=== PATIENT | female | born 1945 | race Caucasian/White ===

== ENCOUNTER 2016-12-17 18:27 | Inpatient (IN) | payer OTHER, MEDICARE ==
[~2016-12-17] VITALS: Ht 152.4 cm; Wt 79.4 kg
--- NOTE | ~2016-12-17 | HP ---
PATIENT: RONALDO MERCADO MEDICAL RECORD: [id number] ACCOUNT: [id number] LOCATION:D.[facility] : 46 ADMISSION DATE: 12/18/16 HISTORY AND PHYSICAL EXAMINATION HISTORY OF PRESENT ILLNESS: Ms. Mercado is a 71-year-old white female that presents to the Emergency Room complaining of right upper and epigastric abdominal pain with radiation to the back with some nausea. She presents to the Emergency Room where her ultrasound shows findings compatible with acute cholecystitis. LFTs are okay. She is admitted at this time for a surgical consultation. PAST MEDICAL HISTORY: Significant for hypertension and coronary artery disease. PREVIOUS SURGERIES: Include bypass in 2002, ovarian cyst removal. ALLERGIES OR INTOLERANCES: None known. HOME MEDICATIONS: Include metoprolol 100 mg daily, baby aspirin a day, estrogen 1.25 every day. FAMILY HISTORY: Significant for cardiovascular disease. SOCIAL HISTORY: The patient has a history of previous nicotine abuse, alcohol okay. REVIEW OF SYSTEMS: She denies any fever, chills, or sweats. She does have some nausea and vomiting, right upper quadrant abdominal pain with radiation to the back. No chest pain or shortness of breath. No change in bowels. No dysuria. No rash. PHYSICAL EXAMINATION: HEAD: Normocephalic. NECK: Soft and supple. EYES: Sclerae nonicteric. HEART: Regular rate and rhythm. LUNGS: Clear. ABDOMEN: Soft with tenderness in right upper quadrant. No edema. NEUROLOGIC: Without any gross focal deficits. IMPRESSION: 1. Right upper quadrant abdominal pain with probable acute cholecystitis. 2. History of coronary artery disease, stable. 3. Hypertension. PLAN: Admit, IV fluids, pain control. Hold estrogen and aspirin for now. Surgical consult with probable laparoscopic cholecystectomy in the a.m. TRANSINT:[id number] Voice Confirmation ID: [id number] DOCUMENT ID: [id number] HISTORY AND PHYSICAL [id number] RONALDO MERCADO MATTHEW CC: [id number] DICTATION DATE: 12/18/16 1210 DIRECTOR OF STUDENT AID: 12/18/16 1427 ADM IN [facility] [address] [place] [address]
[2016-12-17 19:08] LABS: BASOPHILS 0.3 % (0-2); EOSINOPHILS 3.6 % (0-7); HEMATOCRIT 36.7 % (36.0-48.0); HEMOGLOBIN 11.9 g/dL (12-16); LYMPHOCYTES 15.9 % (15-50); MCH 29.8 pg (26.0-34.0); MCHC 32.4 g/dL (31.0-37.0); MEAN PLATELET VOLUME 10.1 fL (7.4-10.4); MONOCYTES 12.4 % (2-11); NEUTROPHILS 67.8 % (40-80); PLATELET COUNT 228 10x3/uL (130-400); RBC 3.99 10x6/uL (4.00-5.40); WBC 6.2 10x3/uL (4.8-10.8)
[2016-12-17 19:35] LABS: ALBUMIN 3.3 g/dL (3.4-5.0); ALKALINE PHOSPHATASE 92 U/L (46-116); ALT (SGPT) 41 U/L (10-68); AMYLASE - SERUM 33 U/L (25-115); BILIRUBIN - TOTAL 0.33 mg/dL (0.2-1.3); CALC OSMOLALITY 268 mosm/kg (275-300); CALCIUM 9.4 mg/dL (8.5-10.1); CARBON DIOXIDE 29.3 mmol/L (21.0-32.0); CHLORIDE - SERUM 98 mmol/L (98-107); CREATININE - SERUM 0.7 mg/dL (0.6-1.3); GLUCOSE 111 mg/dL (74-106); LIPASE 181 U/L (73-393); POTASSIUM - SERUM 4.1 mmol/L (3.5-5.1); PROTEIN - SERUM 7.3 g/dL (6.4-8.2); SODIUM 134 mmol/L (136-145); UREA NITROGEN 12 mg/dL (7-18); eGFR NON AFRICAN AMERICAN 88 mL/min (90-120)
[2016-12-17 19:55] LABS: TROPONIN-I < 0.017 ng/mL (0.000-0.060)
[2016-12-18] MEDS ORDERED: METOPROLOL TART50 MG PO (03:09)
[2016-12-18] MEDS ORDERED: CHILDREN'S ASPI81 MG PO (03:09)
[2016-12-18] MEDS ORDERED: PREMARIN1.25 MG PO (03:10)
--- NOTE | 2016-12-18 03:39 | NUR ---
CALLED FOR TELE
--- NOTE | 2016-12-18 03:39 | NUR ---
RED'D PT FROM ER. NO VISIBLE SIGNS OF DISTRESS AND PT HAS NO C/O PAIN. COMPLETED HX AND ASSESSMENT. PATIENT DENIES NEEDS AT THIS TIME. BED IN LOWEST POSITION AND CALL LIGHT WITHIN REACH. ENCOURAGED THE PATIENT TO CALL IF SHE HAS NEEDS.
[2016-12-18 04:00] VITALS: BP 115/67
[2016-12-18 06:40] VITALS: BP 115/67; Ht 152.4 cm; Wt 79.4 kg
[2016-12-18 08:35] VITALS: BP 153/54
[2016-12-18 09:02] LABS: BASOPHILS 0.1 % (0-2); EOSINOPHILS 0.7 % (0-7); HEMATOCRIT 36.2 % (36.0-48.0); HEMOGLOBIN 11.8 g/dL (12-16); IMMATURE GRANULOCYTES 0.1 % (0-5); LYMPHOCYTES 17.9 % (15-50); MCH 29.8 pg (26.0-34.0); MCHC 32.6 g/dL (31.0-37.0); MCV 91.4 fL (80.0-100.0); MEAN PLATELET VOLUME 10.4 fL (7.4-10.4); MONOCYTES 7.7 % (2-11); NEUTROPHILS 73.5 % (40-80); PLATELET COUNT 228 10x3/uL (130-400); RBC 3.96 10x6/uL (4.00-5.40); WBC 7.3 10x3/uL (4.8-10.8)
[2016-12-18 09:16] LABS: ALBUMIN 3.2 g/dL (3.4-5.0); ALKALINE PHOSPHATASE 85 U/L (46-116); ALT (SGPT) 36 U/L (10-68); BILIRUBIN - TOTAL 0.41 mg/dL (0.2-1.3); CALC OSMOLALITY 264 mosm/kg (275-300); CALCIUM 8.5 mg/dL (8.5-10.1); CARBON DIOXIDE 29.9 mmol/L (21.0-32.0); CHLORIDE - SERUM 97 mmol/L (98-107); CREATININE - SERUM 0.6 mg/dL (0.6-1.3); GLUCOSE 113 mg/dL (74-106); POTASSIUM - SERUM 3.7 mmol/L (3.5-5.1); PROTEIN - SERUM 7.2 g/dL (6.4-8.2); SODIUM 132 mmol/L (136-145); UREA NITROGEN 10 mg/dL (7-18); eGFR NON AFRICAN AMERICAN > 90 mL/min (90-120)
[2016-12-18 12:51] VITALS: BP 146/54
[2016-12-18 16:06] VITALS: BP 153/68
--- NOTE | 2016-12-18 19:59 | NUR ---
PATIENT RESTING IN BED AND DENIES NEEDS AT THIS TIME. BED IN LOWEST POSITION AND CALL LIGHT WITHIN REACH. ENCOURAGED THE PATIENT TO CALL IF SHE HAS NEEDS.
[2016-12-18 20:00] VITALS: BP 113/71
--- NOTE | 2016-12-18 20:18 | NUR ---
NOTIFIED BY BRUCE BURTON PATIENT'S TEMP 102.3
--- NOTE | 2016-12-18 20:53 | NUR ---
PAGED DR. GONZALEZ IN REGARDS TO PATIENT'S TEMP
[2016-12-19 04:00] VITALS: BP 145/73
--- NOTE | 2016-12-19 04:30 | NUR ---
NOTIFIED BY PATIENT THAT SHE HAS A RASH ON HER LEFT BUTTOCK DOWN HER LEFT LEG THAT IS NEW. PATIENT DID NOT HAVE THE RASH ON ADMISSION.
--- NOTE | 2016-12-19 07:45 | NUR ---
ASSESSMENT PER FLOW SHEET.PT WITHOUT DISTRESS.CALL LIGHT IN REACH
[2016-12-19 08:57] VITALS: BP 187/72
[2016-12-19 12:56] VITALS: BP 185/76
--- NOTE | 2016-12-19 14:16 | NUR ---
RE CHECK TEMP AFTER TYKENOL ORDERED.100.4
--- NOTE | 2016-12-19 14:23 | NUR ---
TO OR VIA BED.
--- NOTE | 2016-12-19 16:14 | NUR ---
DENTURES IN LABELED CUP WITH PT FROM OR TO PACU. PACU NURSE NOTIFIED
[2016-12-19 17:34] VITALS: BP 139/53
--- NOTE | 2016-12-19 17:35 | NUR ---
BACK FROM PACU VIA BED. PT WITHOUT DISTRESS.LAP SITES TO ABDOMEN CDI X4. 02 AT 3 LITERS PER NASAL CANULA,SATS 94-96%.DENIES PAIN AT PRESENT.AWAKE AND ALERT.
--- NOTE | 2016-12-19 20:30 | NUR ---
PATIENT RESTING IN BED AND DENIES NEEDS AT THIS TIME. COMPLETED ASSESSMENT AND ADMINISTERED MEDS PER ORDERS. BED IN LOWEST POSITION AND CALL LIGHT WITHIN REACH. ENCOURAGED THE PATIENT TO CALL IF SHE HAS NEEDS.
--- NOTE | 2016-12-19 23:34 | NUR ---
NOTIFIED BY BRUCE BURTON OF 100.6 TEMP
--- NOTE | 2016-12-20 03:35 | NUR ---
ADMINISTERED TYLENOL FOR 103.0 TEMP
[2016-12-20 04:00] VITALS: BP 174/76
[2016-12-20 05:58] LABS: BASOPHILS 0.5 % (0-2); EOSINOPHILS 0.1 % (0-7); HEMOGLOBIN 10.8 g/dL (12-16); IMMATURE GRANULOCYTES 0.1 % (0-5); LYMPHOCYTES 20.9 % (15-50); MCH 29.6 pg (26.0-34.0); MCHC 32.7 g/dL (31.0-37.0); MCV 90.4 fL (80.0-100.0); MEAN PLATELET VOLUME 10.7 fL (7.4-10.4); MONOCYTES 9.6 % (2-11); NEUTROPHILS 68.8 % (40-80); RBC 3.65 10x6/uL (4.00-5.40); RDW 14.2 % (11.5-14.5)
[2016-12-20 06:07] LABS: PLATELET COUNT 175 10x3/uL (130-400)
[2016-12-20 06:20] LABS: ALBUMIN 2.6 g/dL (3.4-5.0); ALKALINE PHOSPHATASE 165 U/L (46-116); BILIRUBIN - TOTAL 0.95 mg/dL (0.2-1.3); CALC OSMOLALITY 261 mosm/kg (275-300); CALCIUM 7.4 mg/dL (8.5-10.1); CARBON DIOXIDE 24.9 mmol/L (21.0-32.0); CHLORIDE - SERUM 97 mmol/L (98-107); CREATININE - SERUM 0.7 mg/dL (0.6-1.3); GLUCOSE 107 mg/dL (74-106); POTASSIUM - SERUM 3.3 mmol/L (3.5-5.1); PROTEIN - SERUM 6.2 g/dL (6.4-8.2); SODIUM 131 mmol/L (136-145); UREA NITROGEN 11 mg/dL (7-18); eGFR NON AFRICAN AMERICAN 88 mL/min (90-120)
[2016-12-20 06:27] LABS: ALT (SGPT) 56 U/L (10-68)
--- NOTE | 2016-12-20 07:20 | NUR ---
A&O, DENIES NEEDS, NO DISTRESS NOTED, CALL LIGHT IN REACH, WILL CONTINUE TO MONITOR
[2016-12-20 08:29] VITALS: BP 132/43
--- NOTE | 2016-12-20 14:32 | NUR ---
REPORT RECIEVE ASSUMED CARE. PATIENT IN BED WITH IV INTACT. NO COMPLAINTS AT THIS TIME. IV INTACT. CALL LIGHT WITHIN REACH.
[2016-12-20 16:27] VITALS: BP 130/52
--- NOTE | 2016-12-20 18:38 | NUR ---
PATIENT SITTING UP IN BED EATING. NO COMPLAINTS. IV INTACT. CALL LIGHT WITHIN REACH.
--- NOTE | 2016-12-20 20:40 | NUR ---
PATIENT RESTING IN BED WITH GUEST AT BEDSIDE AND DENIES NEEDS AT THIS TIME. BED IN LOWEST POSITION AND CALL LIGHT WITHIN REACH. ENCOURAGED THE PATIENT TO CALL IF SHE HAS NEEDS.
--- NOTE | 2016-12-20 23:20 | NUR ---
PT'S IV WAS SLIGHTLY RED AND WAS "BURNING" THE PATIENT. I RESITED THE PT'S IV IN THE R FA ON THE SECOND ATTEMPT WITH A 20G.
[2016-12-21] VITALS: BP 144/62
--- NOTE | 2016-12-21 04:57 | NUR ---
FERNANDO ENCINAS IN REGARDS TO PATIENT'S PAIN
[2016-12-21 06:11] LABS: BASOPHILS 0.2 % (0-2); EOSINOPHILS 4.4 % (0-7); HEMATOCRIT 32.1 % (36.0-48.0); HEMOGLOBIN 10.6 g/dL (12-16); IMMATURE GRANULOCYTES 0.1 % (0-5); LYMPHOCYTES 34.4 % (15-50); MCH 29.9 pg (26.0-34.0); MCV 90.7 fL (80.0-100.0); MEAN PLATELET VOLUME 10.9 fL (7.4-10.4); MONOCYTES 9.1 % (2-11); NEUTROPHILS 51.8 % (40-80); PLATELET COUNT 160 10x3/uL (130-400); RBC 3.54 10x6/uL (4.00-5.40); RDW 14.6 % (11.5-14.5); WBC 8.6 10x3/uL (4.8-10.8)
[2016-12-21 06:27] LABS: CALC OSMOLALITY 270 mosm/kg (275-300); CALCIUM 7.6 mg/dL (8.5-10.1); CARBON DIOXIDE 24.2 mmol/L (21.0-32.0); CHLORIDE - SERUM 101 mmol/L (98-107); CREATININE - SERUM 0.6 mg/dL (0.6-1.3); GLUCOSE 95 mg/dL (74-106); POTASSIUM - SERUM 3.5 mmol/L (3.5-5.1); SODIUM 136 mmol/L (136-145); UREA NITROGEN 9 mg/dL (7-18); eGFR NON AFRICAN AMERICAN > 90 mL/min (90-120)
[2016-12-21 07:55] VITALS: BP 130/57
--- NOTE | 2016-12-21 09:21 | NUR ---
Patient Name: RONALDO MERCADO Admission Status: ER Accout number: [id number] Admission Date: 12-18-2016 : 1945 Admission Diagnosis:CHOLECYSTITIS, UNSPECIFIED Attending: LILA KAUFMAN Current LOS: 3 Anticipated DC Date: Planned Disposition: Home Primary Insurance: [employer] PPO Discharge Planning Comments: CM MET WITH PATIENT TO ASSESS DISHCARGE PLANNING NEEDS. PATIENT STATES THAT SHE LIVES INDEPENDENTLY AT HOME WITH HER . HER CAMERON WILL BE THE ONE TO DRIVE HER HOME AT DISCHARGE. PATIENT DENIES ANY DME OR HH SERVICES AND STATED THAT SHE DID NOT THINK SHE WILL NEED ANY AT DISCHARGE. CM WILL CONTINUE TO FOLLOW AND ASSIST WITH DISHCARGE PLANNING NEEDS PCP: SIOBHAN KULKARNI AT [facility] [place] () [phone] Sock And Stocking Ironer: Leighann Walker * Is the patient Alert and Oriented? Yes 0 * How many steps to enter\exit or inside your home? 0 0 * PCP SIOBHAN 0 * Pharmacy [facility] [place] 0 * Preadmission Environment Home with Family 0 * ADLs Independent 0 * Equipment None 0 * List name and contact numbers for known caregivers / representatives who currently or will assist patient after discharge: CAMERON MERCADO () [phone] 0 * Community resources currently utilized None 0 * Additional services required to return to the preadmission environment? No 0 * Can the patient safely return to the preadmission environment? Yes 0 * Has this patient been hospitalized within the prior 30 days at any hospital? No 0 Grand Total: 0
[2016-12-21] MEDS ORDERED: VALTREX500 MG PO (12:01)
[2016-12-21] MEDS ORDERED: HYDROCODONE-APA1 TAB PO (12:01)
[2016-12-21] MEDS ORDERED: ZOFRAN4 MG PO (12:01)
[2016-12-21 12:19] VITALS: BP 108/41
--- NOTE | 2016-12-21 15:12 | NUR ---
DISCHARGE PAPERS AND INSTRCUTIONS GIVEN, QUESTIONS ANSWERED, IV REMOVED TIP INTACT, DISCHARGED PER WC WITH BELONGINGS
--- NOTE | 2016-12-23 11:13 | OP ---
PATIENT NAME: RONALDO WONG MEDICAL RECORD: [id number] :[birth year] LOCATION:D.[facility] ADMISSION DATE:12/18/16 SURGEON: DHRUV GONZALEZ MD DATE OF OPERATION: 12/19/2016 PREOPERATIVE DIAGNOSIS: Acute cholecystitis. POSTOPERATIVE DIAGNOSES: Acute cholecystitis with central and lower abdominal adhesions to the anterior abdominal wall, also adhesions to the gallbladder and hepatomegaly. PROCEDURES: 1. Laparoscopic cholecystectomy. 2. Intraoperative cholangiography without immediate surgeon interpretation. 3. An 18-gauge core needle liver biopsies. The indication for liver biopsy was hepatomegaly. The risks, possible complications and alternatives to the procedure were explained to the patient. She elects to proceed. OPERATIVE COURSE: The patient was conveyed to the operating room electively on 12/19/2016. General anesthesia was induced by the anesthesia staff. The abdomen was sterilely prepped and draped. A small skin rosario was accomplished in the left upper quadrant. A Veress needle was inserted through the skin rosario into the peritoneal cavity. CO2 insufflation was begun. Once a sufficient pneumoperitoneum had been achieved, a 5-mm trocar was inserted through an incision in the right upper quadrant. Under direct internal vision utilizing a television camera, a 12-mm trocar was inserted through an incision at the umbilicus. Two more trocars were inserted. These were 5-mm trocars, one inserted in the epigastrium and one inserted far laterally in the right upper quadrant. During insertion of the Veress needle and all trocars, there appeared to have been no injury to the bowels, any intraperitoneal or retroperitoneal structures. An abdominal survey was undertaken. Adhesions were taken down as some of these adhesions were between the 12-mm trocar site in the gallbladder. Once I had taken down these filmy adhesions, I performed a liver biopsy. Under laparoscopic guidance, I percutaneously accessed the right upper quadrant utilizing an 18-gauge core needle liver biopsy device. Cores were obtained over the convexity of the liver. The biopsy sites were made hemostatic with the electrocautery. I then advanced the cholangiogram trocar. I punctured the fundus of the gallbladder. I aspirated bile. I then injected dye. Under real time fluoroscopy, static images were obtained. These were cholangiographic images. These were sent to the radiologist for interpretation. The radiologist, Dr. Donovan Stinson called back and gave me the interpretation of the cholangiogram. I aspirated bile and removed the cholangiogram trocar. I then grasped the gallbladder and retracted cephalad. It was chronically as well as acutely thickened. Blunt dissection was begun on the triangle of Calot. Two cystic arteries and one cystic duct were identified. The cystic duct was large. I had to change out the epigastric 5-mm trocar for a 12-mm trocar. I OPERATIVE REPORT [id number] RONALDO WONG clipped across the cystic duct and divided it between clips and I clipped across both cystic arteries and divided them between clips. The gallbladder was then excised from its bed in the liver. It was placed within a bag retrieval device and was withdrawn through the umbilical fascia defect. The defect at the umbilicus had to be widened significantly in order to deliver the gallbladder. The 12-mm trocar was replaced and the abdomen reinsufflated. I irrigated and aspirated the right upper quadrant. There was no bleeding even at low pressure of 8. The gallbladder fossa was made even more hemostatic with the addition of the Emily. All the trocars were removed and the abdomen desufflated. The fascia at the umbilicus was closed with multiple interrupted horizontal mattress #1 Vicryls. The skin at the umbilicus was closed with interrupted 4-0 Vicryl Rapide sutures. The other skin incisions were closed with interrupted intracuticular 3-0 Vicryls. Sterile dressings were applied. The patient was then extubated and conveyed to post-anesthesia care unit where she was in stable condition. TRANSINT:[id number] Voice Confirmation ID: [id number] DOCUMENT ID: [id number] DHRUV GONZALEZ MD at 1113 CC: LILA KAUFMAN DO [id number] DICTATION DATE: 12/19/16 172 CUSTOMER SERVICE COORDINATOR: 12/19/16 1842 DIS IN 12/21/16 [id number] [place] [address]
--- NOTE | 2016-12-23 11:13 | CN ---
PATIENT NAME:RONALDO WONG MEDICAL RECORD: [id number] : [birth year] LOCATION:D.[facility] ADMIT DATE: 12/18/16 ACCOUNT: [id number] CONSULTING PHYSICIAN: DHRUV GONZALEZ MD REFERRING PHYSICIAN: LILA KAUFMAN DO DATE OF CONSULTATION: 12/18/2016 This is a consultation note addendum. GASTROENTEROLOGY CONSULTATION CHIEF COMPLAINT: Pain. HISTORY OF PRESENT ILLNESS: The patient has been having right upper quadrant pain. It radiates around to the back. She presented through the Emergency Room. The pain came on gradually. It is constant. Palpation aggravates. Nothing alleviates. Ultrasound of the gallbladder revealed gallstones. The patient underwent a CT scan of the abdomen as well. I have reviewed the CT report. There appeared to be wall thickening of the gallbladder and dense material identified within the gallbladder, raising suspicion for acute cholecystitis. There were sludge and calculi on ultrasound within the gallbladder associated with wall thickening suggesting acute cholecystitis. The patient has been admitted. She has been started on IV analgesia. I am going to plan for a laparoscopic cholecystectomy, intraoperative cholangiography, and possible liver biopsy. The risks, possible complications, and alternatives to the procedure were explained to the patient. She elects to proceed. Past medical and surgical history is outlined elsewhere in the chart. This is a consultation note addendum. For the current medications, allergies, family history as well as social history, please see the chart. REVIEW OF SYSTEMS: Positive for nausea, Positive for abdominal pain. No chest pain. Positive for back pain. Review of systems is negative other than as is described above. PHYSICAL EXAMINATION: GENERAL: The patient does not appear acutely ill. She does appear chronically ill. VITAL SIGNS: Reviewed. HEAD: External ears appear normal. EYES: Extraocular movements are intact. NECK: Trachea is midline. CHEST: No intercostal retractions. PULMONARY: Nonlabored, no stridor. ABDOMEN: Right upper quadrant tenderness with Oneal's sign. EXTREMITIES: No peripheral cyanosis. INTEGUMENT: No rash, no ulcerations. PSYCHIATRIC: Normal affect. NEUROLOGIC: Nonfocal. No lethargy. The patient answers questions appropriately, moves all extremities well. BACK: No thoracic kyphosis. LYMPHATICS: No lymphangitic streaking of the exposed extremities. IMPRESSION: Acute cholecystitis. CONSULT REPORT [id number] RONALDO WONG PLAN: As described above. TRANSINT:[id number] Voice Confirmation ID: [id number] DOCUMENT ID: [id number] DHRUV GONZALEZ MD at 1113 CC: [id number] DICTATION DATE: 12/19/16 172 SHUTDOWN PLANNER: 12/19/16 190 DIS IN 12/21/16 [facility] [address] [place] [id number]
== END 2016-12-21 15:13 | disposition home or self-care (01) | DRG 419 ==
LOC: D.ER 18:27 → D.MS 12-18 01:52 → D.SDCHOLD 12-18 01:52 → D.MS 12-18 01:59 → D.M3 12-18 04:04 → D.MS 12-18 06:31
PROVIDERS: Emergency Medicine; Family Medicine; ADMIT Family Medicine
PROC: 0FT44ZZ Resection of Gallbladder, Percutaneous Endoscopic Approach (ICD-10-PCS; principal; 2016-12-18)
PROC: BF121ZZ Fluoroscopy of Gallbladder using Low Osmolar Contrast (ICD-10-PCS; 2016-12-18)
PROC: 0FB03ZX Excision of Liver, Percutaneous Approach, Diagnostic (ICD-10-PCS; 2016-12-18)
DX: K81.9 Cholecystitis, unspecified (principal); K82.8 Other specified diseases of gallbladder; R16.0 Hepatomegaly, not elsewhere classified

== ENCOUNTER → 2018-05-25 09:57 | Outpatient (CLI) | payer OTHER, MEDICARE ==
[2016-12-18 06:40] VITALS: BMI 34.2
[~2018-05-25 09:57] MED LIST: CHILDREN'S ASPI81 MG PO; HYDROCODONE-APA1 TAB PO; METOPROLOL TART50 MG PO; PREMARIN1.25 MG PO; VALTREX500 MG PO; ZOFRAN4 MG PO
--- NOTE | 2018-05-31 11:54 | ST ---
PATIENT:RONALDO WONG MEDICAL RECORD: [id number] SEX: F LOCATION:[facility] ORDER #: ADMISSION DATE: 05/25/18 AGE OF PATIENT: 72 REFERRING PHYSICIAN: INTERPRETING PHYSICIAN: GIDEON JEFFERS MD DATE OF SERVICE: 05/25/2018 PROCEDURE: Nuclear Stress Test. INDICATION: Chest pain, hypertension, edema. She was exercised on standard Lexiscan protocol with 31 mCi of sestamibi injected at peak stress, 10 mCi were used previously for rest images. FINDINGS: Gated SPECT reveals preserved ejection fraction at 73% with good wall motion and thickening and brightening throughout all segments. SPECT imaging Cardiolite was used as myocardial fusion agent. There is homogeneous uptake throughout all segments at rest and stress with no evidence of inducible ischemia or previous infarction. OVERALL IMPRESSION: 1. This is a normal nuclear stress test with no evidence of inducible ischemia or previous infarction. 2. Gated SPECT reveals a preserved ejection fraction at 73%. In this patient with ongoing symptomatology, the current scan does not suggest the presence of hemodynamically significant coronary artery disease. Evaluate noncardiac etiology of chest pain. TRANSINT:[id number] Voice Confirmation ID: [id number] DOCUMENT ID: [id number] GIDEON JEFFERS MD at 1154 CC: [id number] DICTATION DATE: 05/25/18 1252 POTTERY DECORATOR: 05/26/18 0057 DEP CLI 05/25/18 [address] [place] [address]
== END | disposition home or self-care (01) ==
LOC: D.HCCARDIO 09:57
PROVIDERS: ATTEND Internal Medicine Interventional Cardiology
DX: I20.9 Angina pectoris, unspecified (principal)

== ENCOUNTER → 2018-06-08 10:06 | Outpatient (CLI) | payer OTHER, MEDICARE ==
[2016-12-18 06:40] VITALS: BMI 34.2
--- NOTE | ~2018-06-08 | EC ---
PATIENT:RONALDO WONG DATE OF SERVICE: 06/08/18 SEX: F MEDICAL RECORD: [id number] DATE OF : [birth year] LOCATION:D.[facility] AGE OF PATIENT: 72 ADMISSION DATE: 06/08/18 REFERRING PHYSICIAN: INTERPRETING PHYSICIAN: GIDEON MIRELES MD ECHOCARDIOGRAM REPORT ECHO CHARGES 4 ECHO COMPLETE Date: 06/08/18 CLINICAL DIAGNOSIS: H/O CAD/HTN ECHOCARDIOGRAPHIC MEASUREMENTS (adult normal given) AC root (d.<3.7cm) 3.3 cm LV Septum d (<1.2 cm> 1.3 cm Valve Excursion 1.5 cm LV Septum (systole) 1.6 cm Left Atria (s.<4.0cm> 5.8 cm LVPW d(<1.2cm) 1.4 cm RV (d.<2.3cm) 2.9 cm LVPW (sytole) 2.1 cm LV diastole(<5.6CM) 4.4 cm MV E-F(>70mm/sec) cm LV systole 2.5 cm LVOT Diameter 2.4 cm MV exc.(>10mm) cm Est.ejection fraction (50-75%) % DOPPLER: LVIT cm/sec A 37.0 cm/sec E 96.0 cm/sec LA cm/sec RVSP 34.4 mmHg LVOT 69.0 cm/sec AOP1/2T m/s Asc. Ao 126 cm/sec RVOT 48.0 cm/sec RA cm/sec PA 65.0 cm/sec AV Gradient Peak 6.4 mmHg AV Mean 3.2 mmHg AV Area 2.4 cm MV Gradient Peak 5.2 mmHg MV Mean 1.6 mmHg MV Area cm COMMENTS: OP - HC Seating Upholsterer: Gian TAFOYAOE Colliery Clerk: 1 Dr. Mireles TAPE# PACS Pericardial Effusion N DATE OF SERVICE: 06/08/2018 ECHOCARDIOGRAM DATE OF SERVICE: 06/08/2018 FINDINGS: 1. Left ventricular chamber size is within normal limits. Left ventricular systolic function is normal. Overall ejection fraction estimated at 60%. 2. The left atrium is moderately dilated at 5.8 cm. Right atrium and right ECHOCARDIOGRAM REPORT [id number] RONALDO WONG ventricle chamber sizes are as well ahth-ik-gtcvloecea dilated. 3. Valvular structure have normal structure and motion. 4. Doppler interrogation reveals moderate mitral regurgitation, moderate tricuspid regurgitation, no other valvular insufficiency or stenosis. Pulmonary systolic pressure is estimated at 34 mmHg. 5. No evidence of pericardial effusion or left ventricular thrombus. TRANSINT:[id number] Voice Confirmation ID: [id number] DOCUMENT ID: [id number] GIDEON MIRELES MD CC: [id number] DICTATION DATE: 06/08/18 155 CHUCKING MACHINE OPERATOR: 06/08/18 2331 REG [facility] [address] [place] [id number]
== END | disposition home or self-care (01) ==
LOC: D.HCCARDIO 10:00
PROVIDERS: ATTEND Internal Medicine Interventional Cardiology
DX: R60.0 Localized edema (principal)

== ENCOUNTER 2018-07-06 08:20 | Outpatient (CLI) | payer OTHER ==
[~2018-07-06] VITALS: Ht 152.4 cm; Wt 84.1 kg
--- NOTE | ~2018-07-06 | HEMODYNAMI ---
PATIENT:Mariposa WONG MEDICAL RECORD: [id number] : 47 LOCATION:[facility] ADMISSION DATE: 07/06/18 Generatedon:07/06/201810:23 Patient name: Mariposa MERCADO Patient #: [id number] SSN : : 1945 Date of study: 07/06/2018 Page: Of Hemodynamic Procedure Report Patient Data Patient Demographics Procedure consent was obtained First Name: Mariposa Gender: Female Last Name: YVONNE MERCADO : 1945 [facility] Initial: K Age: 72 year(s) Patient #: [id number] Race: Unknown Additional ID: [id number] Contact details Address: [facility] [address] State: [place] City: [place] Zip code: [address] Past Medical History Allergies: No known allergies Admission Admission Data Admission Date: 07/06/2018 Admission Time: 8:20 Lab Results Lab Result Date: 07/06/2018 Lab Result Time: 0:00 Biochemistry Name Units Result Min Max BUN mg/dl 16 --(---*)-- 7 18 Creatinine mg/dl 0.7 --(*---)-- 0.6 1.3 CBC Name Units Result Min Max Hemoglobin g/dl 12.8 -*(----)-- 13.5 17.5 Procedure Procedure Types Cath Procedure Diagnostic Procedure LHC LHC w/Coronaries w/Grafts Procedure Description Procedure Date Procedure Date: 07/06/2018 Procedure Start Time: 10:10 Procedure End Time: 10:21 Procedure Staff Name Function Joe Mireles MD Performing Physician Brunilda Nunn RT Monitor Jennifer Locke RN Nurse Lizbeth Bowen RT Scrub Procedure Data Cath Procedure Fluoroscopy Diagnostic fluoroscopy Total fluoroscopy Time: 0.8 time: 0.8 min min Diagnostic fluoroscopy Total fluoroscopy dose: 212 dose: 212 mGy mGy Contrast Material Contrast Material Type Amount (ml) Isovue 300 60 Entry Location Entry Primary Successful Side Size Upsize Upsize Entry Closure Succes sful Closure Location (Fr) 1 (Fr) 2 (Fr) Remarks Device Remarks Femoral Right 5 Fr Exoseal artery Estimated blood loss: 10 ml Diagnostic catheters Device Type Used For End Catheter Placement MULTIPACK Pigtail 5 Fr Procedure catheter MULTIPACK JL 4.0 5Fr Procedure catheter DIAGNOSTIC AR MOD 5Fr Procedure Catheter ([id number]) Procedure Complications No complications Procedure Medications Medication Administration Route Dosage Oxygen etCO2 Nasal cannula 2 l/min Lidocaine 2% added to field 20 Heparin Flush Bag added to field 2 bags (1000units/500ml NS) 0.9% NaCl I.V. 100 ml/hr Versed I.V. 1 mg Fentanyl I.V. 50 mcg Versed I.V. 1 mg Fentanyl I.V. 50 mcg Versed I.V. 1 mg Fentanyl I.V. 50 mcg Hemodynamics Rest HGB: 12.8 (g/dl) Heart Rate: 63 (bpm) Snapshots Pre Cath Intra NCS Post Cath Vital Signs Time Heart Resp SPO2 etCO2 NIBP (mmHg) Rhythm Pain Sedation Rate (ipm) (%) (mmHg) Status Level (bpm) 9:47:06 63 14 100 40.4 145/65(113) NSR 0 (11) 10(A) , No pain 9:51:40 60 12 98 28.4 120/52(86) NSR 0 (11) 10(A) , No pain 9:56:11 62 13 99 42.6 122/54(90) NSR 0 (11) 10(A) , No pain 10:00:41 62 16 100 39.6 123/56(87) NSR 0 (11) 10(A) , No pain 10:05:11 61 15 100 42.6 124/55(101) NSR 0 (11) 10(A) , No pain 10:09:38 66 12 98 35.9 108/54(82) NSR 0 (11) 10(A) , No pain 10:13:58 64 16 96 0 103/55(90) NSR 0 (11) 9(A) , No pain 10:18:18 63 10 98 26.2 124/58(92) NSR 0 (11) 9(A) , No pain 10:21:18 66 18 99 40.4 120/55(93) NSR 0 (11) 10(A) , No pain Medications Time Medication Route Dose Verified Delivered Reason Notes Eff ectiveness by by 9:47:57 Oxygen etCO2 2 Joe Buffie used for Nasal l/min Chi Locke RN procedure cannula 9:48:05 Lidocaine 2% added 20ml Joe Joe for local to vial Chi Mireles MD anesthetic field 9:48:12 Heparin Flush added 2 Joe Joe used for Bag to bags Chi Mireles MD procedure (1000units/500ml field NS) 9:48:25 0.9% NaCl I.V. 100 Joe Buffie Per ml/hr Chi Locke RN physician 10:09:19 Versed I.V. 1 mg Joe Buffie for Chi Locke RN sedation 10:09:25 Fentanyl I.V. 50 Joe Buffie for mcg Chi Locke RN sedation 10:12:29 Versed I.V. 1 mg Joe Lewisie for Chi Locke RN sedation 10:12:32 Fentanyl I.V. 50 Joe Lewisie for mcg Chi Locke RN sedation 10:15:04 Fentanyl I.V. 50 Joe Buffie for mcg Chi Locke RN sedation 10:15:59 Versed I.V. 1 mg Joe Lewisie for Chi Locke RN sedation Procedure Log Time Note 9:34:40 Time tracking: Regular hours (M-F 7:00 - 5:00) 9:34:44 Plan of Care:Hemodynamics will remain stable., Cardiac rhythm will remain stable., Comfort level will be maintained., Respiratory function will remain adequate., Patient/ family verbilizes understanding of procedure., Procedure tolerated without complication., Recovers from procedure without complications.. 9:34:46 Brunilda Nunn RT(R) sent for patient. Start room use. 9:36:47 Patient received from Pre/Post Procedure Room to CCL 3 Alert and oriented. Tansferred to table in Supine position. 9:36:49 Warm blankets applied, and parris hugger turned on for patient comfort. 9:36:49 Correct patient and procedure confirmed by team. 9:36:50 Signed procedure consent form obtained from patient. 9:36:51 ECG and BP/O2 sat monitors applied to patient. 9:36:52 Full Disclosure recording started 9:45:34 Vital chart was started 9:45:35 Baseline sample Acquired. 9:45:41 Rhythm: sinus rhythm 9:46:56 H&P Date Dictated: 05/25/2018 Within 30 days and on chart., H&P Addendum completed by physician on day of procedure. (MUST COMPLETE FOR ALL OUTPATIENTS). 9:47:04 Pre-procedure instructions explained to patient. 9:47:26 Family in waiting room. 9:47:29 Patient NPO since Midnight. 9:47:39 Patient allergic to No known allergies 9:47:42 Is the patient allergic to Iodine/contrast media? No. 9:47:45 Was the patient premedicated? Yes 9:47:46 Is patient on blood thinner?Yes 9:47:50 ACC The patient was administered the following blood thiners within the last 24 hours: ACCAspirin 9:47:52 Patient diabetic? No. 9:47:57 Oxygen 2 l/min etCO2 Nasal cannula was administered by Jennifer Locke RN; used for procedure; 9:48:03 Snore? No 9:48:04 Sleep apnea? No 9:48:05 Lidocaine 2% 20ml vial added to field was administered by Joe Mireles MD; for local anesthetic; 9:48:12 Heparin Flush Bag (1000units/500ml NS) 2 bags added to field was administered by Joe Mireles MD; used for procedure; 9:48:15 Pre procedure: right dorsailis pedis pulse 2+ Normal; easily identifiable; not easily obliterated 9:48:19 Patient pain scale 0/10 ?. 9:48:25 0.9% NaCl 100 ml/hr I.V. was administered by Jennifer Locke RN; Per physician; 9:48:47 IV patent on arrival in left antecubital with 0.9% NaCl at [facility]. 9:49:14 Lab Result : BUN 16 mg/dl 9:49:14 Lab Result : Creatinine 0.7 mg/dl 9:49:14 Lab Result : Hemoglobin 12.8 g/dl 9:49:26 Lab results completed and on chart. 9:49:35 Right groin area was prepped with chlora-prep and draped in sterile fashion 9:49:37 Alarms reviewed by R. N. 9:49:38 Sharps counted by scrub and verified by R.N. 9:49:40 Physician paged 9:49:44 Use device set Femoral Dx 9:49:46 ACIST Syringe (86866) opened to sterile field. 9:49:46 Bag Decanter (2002) opened to sterile field. 9:49:48 Medline Cath Pack ([id number]) opened to sterile field. 9:49:48 DIAGNOSTIC WIRE .035 260cm J wire (165377) opened to sterile field. 9:49:49 ACIST Hand Control (68193) opened to sterile field. 9:49:50 ACIST Manifold (50563) opened to sterile field. 9:49:52 DIAGNOSTIC Multipack 5Fr catheter set ([id number]) opened to sterile field. 9:49:59 EXOSEAL 5Fr (EX500) opened to sterile field. 9:50:00 SHEATH 5FR [place] ([id number]) opened to sterile field. 9:50:50 Maximum allowable Isovue 300 dose 300ml. Physician notified. (300ml for normal creatinines. For patients with creatinine of 1.7 or higher multiply weight(kg) x 5 divided by creatinine.) 9:50:55 Fire Safety Assessment: A--An alcohol-based skin anteseptic being used preoperatively., C--Open oxygen or nitrous oxide is being used., D--An ESU, laser, or fiber-optic light is being used. 9:59:50 Physical assessment completed. ASA score P 2 - A patient with mild systemic disease as per Joe Mireles MD. 10:08:59 Physician arrived 10:08:59 --------ALL STOP TIME OUT------ 10:09:00 Final Timeout: patient, procedure, and site verified with staff and physician. All members of the team are in agreement. 10:09:02 Right groin site verified by team. 10:09:07 Sedation plan: IV Moderate Sedation Medication:Versed, Fentanyl 10:09:19 Versed 1 mg I.V. was administered by Jennifer Locke RN; for sedation; 10:09:25 Fentanyl 50 mcg I.V. was administered by Jennifer Locke RN; for sedation; 10:10:33 Zero performed for pressure channel P1 10:10:45 Procedure started. 10:10:58 Local anesthetic to right femoral artery with Lidocaine 2% by Joe Mireles MD.INITIAL ACCESS ONLY 10:11:11 A 5 Fr sheath was inserted into the Right Femoral artery 10:11:15 A MULTIPACK Pigtail 5 Fr catheter was advanced over the wire and used for Procedure. 10:11:15 J wire advanced. 10:11:31 LV angiography performed. 10:12:29 Versed 1 mg I.V. was administered by Jennifer Locke RN; for sedation; 10:12:32 Fentanyl 50 mcg I.V. was administered by Jennifer Locke RN; for sedation; 10:13:55 EF : 55 % 10:14:06 Catheter removed. 10:14:38 A MULTIPACK JL 4.0 5Fr catheter was advanced over the wire and used for Procedure. 10:14:55 LCA angiography performed. 10:15:04 Fentanyl 50 mcg I.V. was administered by Jennifer Locke RN; for sedation; 10:15:06 Catheter removed. 10:15:59 Versed 1 mg I.V. was administered by Jennifer Locke RN; for sedation; 10:16:32 A DIAGNOSTIC AR MOD 5Fr Catheter ([id number]) was advanced over the wire and used for Procedure. 10:16:47 RCA angiography performed. 10:16:54 Catheter removed. 10:17:46 Sheath removed intact; hemostasis achieved with Exoseal to the Right Femoral artery. 10:18:09 EXOSEAL 5Fr (EX500) opened to sterile field. 10:18:10 Tegaderm 4 x 4 ([id number]) opened to sterile field. 10:18:20 Procedure ended.(Physican Out) 10:19:00 Fluoroscopy time 00.80 minutes. 10:19:10 Fluoroscopy dose: 212 mGy 10:19:10 Flurop Dose total: 212 10:19:15 Contrast amount:Isovue 300 60ml. 10:19:16 Sharps counted by scrub and verified by R.N. 10:19:19 Insertion/operative site no bleeding no hematoma. 10:19:22 Post right femoral artery:stable 10:19:27 Post Procedure Pulses reassessed and unchanged 10:19:30 Post-procedure physical assessment completed. ASA score P 2 - A patient with mild systemic disease as per Joe Mireles MD. 10:19:33 Post procedure rhythm: sinus rhythm 10:19:36 Estimated blood loss: 10 ml 10:19:38 Post procedure instruction explained to patient.Patient verbalizes understanding. 10:19:58 Procedure type changed to Cath procedure, Diagnostic procedure, LHC, LHC w/Coronaries w/Grafts 10:20:00 Procedure and supply charges have been captured, reviewed, submitted and are correct. 10:20:56 Procedure Complication : No complications 10:21:01 Vital chart was stopped 10:21:01 See physician's report for complete and final results. 10:21:03 Report given to Pre/Post Procedure Room. 10:21:07 Patient transfered to Pre/Post Procedure Room with Stretcher. 10:21:11 Procedure ended. 10:21:11 Full Disclosure recording stopped 10:21:14 End room use (Document Last) Device Usage Item Name Manufacture Quantity Catalog Hospital Part Current Minimal L ot# / Number Charge Number Stock Stock Serial# Code ACIST Acist 1 16120 [id number] 328116 131247 20 Syringe Medical (68775) Systems Inc Bag Microtek 1 2001S 879015 59436 088420 5 Decanter Medical Inc. () Medline Medline 1 [id number] 518382 74218 069156 5 Cath Pack ([id number]) DIAGNOSTIC [facility] [place] 1 657557 312558 398406 785367 30 WIRE .035 260cm J wire (523009) ACIST Hand Acist 1 56627 561241 391337 824652 5 Control Medical (85711) Systems Inc ACIST Acist 1 15494 344258 168375 146746 5 Manifold Medical (25962) Systems Inc DIAGNOSTIC Cardinal 1 PG7995 523677 50496 144452 30 Multipack Health 5Fr catheter set ([id number]) EXOSEAL 5Fr Cardinal 2 EX500 006228 141504 650324 10 (EX500) Health SHEATH 5FR Terumo 1 [id number] 673820 397295 121845 5 [place] (XIC762) MULTIPACK Cardinal 1 560955 5 Pigtail 5 Health Fr catheter MULTIPACK Cardinal 1 [id number] 5 JL 4.0 5Fr Health catheter DIAGNOSTIC Cardinal 1 [id number] 146658 195423 849786 15 AR MOD 5Fr Health Catheter ([id number]) Tegaderm 4 3M 1 1626W 954315 325764 463065 5 x 4 (1626W) Signature Audit Stow Stage Time Signature Unsigned Intra-Procedure 07/06/2018 Brunilda Nunn 10:23:00 AM RT(R) Signatures Monitor : Brunilda Nunn Signature : RT Date : Time : [place] [id number] [place] [address]
[2018-07-06] MEDS ORDERED: TRIBENZOR 40-11 EAC1 PO (08:44)
[2018-07-06 08:47] VITALS: BP 103/67; Ht 152.4 cm; Wt 84.1 kg
[2018-07-06 08:56] LABS: HEMATOCRIT 37.8 % (36.0-48.0); HEMOGLOBIN 12.8 g/dL (12-16); LYMPHOCYTES 32.8 % (15-50); MCH 30.9 pg (26.0-34.0); MCHC 33.9 g/dL (31.0-37.0); MCV 91.3 fL (80.0-100.0); MEAN PLATELET VOLUME 9.5 fL (7.4-10.4); NEUTROPHILS 57.6 % (40-80); RBC 4.14 10x6/uL (4.00-5.40); RDW 12.9 % (11.5-14.5); WBC 5.9 10x3/uL (4.8-10.8)
[2018-07-06 09:03] LABS: CALC OSMOLALITY 275 mosm/kg (275-300); CALCIUM 8.8 mg/dL (8.5-10.1); CARBON DIOXIDE 27.8 mmol/L (21.0-32.0); CHLORIDE - SERUM 100 mmol/L (98-107); CREATININE - SERUM 0.7 mg/dL (0.6-1.3); GLUCOSE 111 mg/dL (74-106); SODIUM 137 mmol/L (136-145); UREA NITROGEN 16 mg/dL (7-18); eGFR NON AFRICAN AMERICAN 87 mL/min (90-120)
[2018-07-06 09:11] LABS: PLATELET COUNT 254 10x3/uL (130-400)
--- NOTE | 2018-07-06 10:45 | NUR ---
RIGHT GROIN DRESSING C/D/I. NO S/S OF HEMATOMA NOTED. RIGHT PEDAL PULSE PALPABLE. PT RESTING COMFORTABLY. NO NEEDS AT THIS TIME. CALLED AND SPOKE WITH PT'S PER PT REQUEST. INFORMED HIM OF HER DISCHARGE TIME.
--- NOTE | 2018-07-06 11:15 | NUR ---
PT RESTING COMFORTABLY. RIGHT GROIN DRESSING C/D/I. NO S/S OF HEMATOMA NOTED. VSS. RIGHT PEDAL PULSE PALPABLE.
--- NOTE | 2018-07-06 11:29 | NUR ---
PT'S HEAD OF BED INC TO 30 DEGREES. TOLERATED WELL. RIGHT GROIN DRESSING C/D/I. NO S/S OF HEMATOMA NOTED. PT SET UP WITH SANDWICH TRAY AND DRINK. DENIES PAIN. VSS. WILL CONTINUE TO MONITOR.
--- NOTE | 2018-07-06 11:54 | NUR ---
DR. JEFFERS AT BEDSIDE. SPEAKING WITH PT. RIGHT ARM PIV D/C'D WITH CATH TIP INTACT. PT TOLERATED WELL.
--- NOTE | 2018-07-06 11:55 | NUR ---
PT TOLERATED FOOD AND DRINK. DENIES NAUSEA. INSTRUCTED TO GET UP AND DRESSED.
--- NOTE | 2018-07-06 12:03 | NUR ---
DISCUSSED DISCHARGE INSTRUCTIONS WITH PT. SHE VOICED UNDERSTANDING. RIGHT GROIN DRESSING C/D/I. NO S/S OF HEMATOMA NOTED.
--- NOTE | 2018-07-06 12:05 | NUR ---
PT TAKEN OUT TO VEHICLE BY WHEELCHAIR. NO S/S OF DISTRESS NOTED. ALL BELONGINGS AND PAPWERWORK IN HAND.
--- NOTE | 2018-07-06 15:13 | OP ---
PATIENT NAME: Mariposa WONG MEDICAL RECORD: [id number] :47 LOCATION:D.[facility] ADMISSION DATE: SURGEON: GIDEON JEFFERS MD DATE OF OPERATION: 07/06/2018 PROCEDURES: 1. Left heart catheterization. 2. Selective coronary angiography. 3. Left ventriculogram. 4. HAGAN angiography. INDICATION: Angina and coronary artery disease. PROCEDURE PERFORMED: After informed consent was obtained and after a detailed description of the risks, benefits as well as alternative therapies, the patient elected to proceed with angiogram and heart catheterization. The right femoral area was prepped and draped in normal sterile fashion. Right femoral artery was cannulated via modified Seldinger technique with placement of 5-Lao sheath. All catheters are exchanged through this sheath. FINDINGS: Left ventriculogram was performed in standard 30-degree GILLIS view, reveals good cardiac wall motion, ejection fraction is 60%. SELECTIVE CORONARY ANGIOGRAPHY: 1. Left main is with no significant angiographic disease. 2. Left anterior descending has moderate irregularities, but no flow-limiting stenosis. 3. HAGAN to the LAD is atretic and nonfunctional. 4. Left circumflex has moderate irregularities, but no flow-limiting stenosis. 5. Right coronary artery has moderate irregularities, but no flow-limiting stenosis. OVERALL IMPRESSION: Minimal coronary artery disease is present. No flow-limiting stenosis. Chest pain is noncardiac in etiology. TRANSINT:[id number] Voice Confirmation ID: [id number] DOCUMENT ID: [id number] GIDEON JEFFERS MD at 1513 CC: [id number] DICTATION DATE: 07/06/18 1020 INSTRUMENT LENS GRINDER APPRENTICE: 07/06/18 1219 DEP CLI 07/06/18 [facility] [address] [place] [address]
== END 2018-07-06 12:05 | disposition home or self-care (01) ==
LOC: D.CATH 08:20
PROVIDERS: ATTEND Internal Medicine Interventional Cardiology
DX: R07.89 Other chest pain (principal); I25.10 Atherosclerotic heart disease of native coronary artery without angina pectoris; Z01.812 Encounter for preprocedural laboratory examination